=== PATIENT | male | born 1985 | race Caucasian/White ===

== ENCOUNTER 2023-01-22 22:34 | Emergency (ER) | payer BC ==
[~2023-01-22] VITALS: Ht 177.8 cm; Wt 131.5 kg
[2023-01-23 02:04] VITALS: BP 142/91; TEMP 98.5; O2SAT 98
== END 2023-01-22 22:45 | disposition home or self-care (01) ==
LOC: ER 22:42
DX: S61.213A Laceration without foreign body of left middle finger without damage to nail, initial encounter (principal); Z88.1 Allergy status to other antibiotic agents; Z87.891 Personal history of nicotine dependence; W25.XXXA Contact with sharp glass, initial encounter; Y93.89 Activity, other specified; Y92.89 Other specified places as the place of occurrence of the external cause; Y99.8 Other external cause status
CPT/HCPCS: 73140; A4663